=== PATIENT | female | born 1975 | race Caucasian/White ===

== ENCOUNTER → 2020-12-05 10:18 | Outpatient (CLI) | payer BC, SELFPAY ==
--- NOTE | ~2020-12-05 | MM_ITS ---
EXAMINATION: MM screening hyacinth BI w jacqueline HISTORY: Screening mammogram TECHNIQUE: Craniocaudal and mediolateral oblique 3-D tomosynthesis images were obtained and synthetic 2-D images were generated. CAD analysis was submitted and interpreted. COMPARISON: 10/25/2019, 04/17/2019, 10/05/2018 BREAST PARENCHYMAL COMPOSITION: The breasts are heterogeneously dense, which may obscure small masses . FINDINGS: Scattered benign-appearing calcifications are present. There is no evidence of suspicious m ass, calcification, or architectural distortion to suggest malignancy in either breast. There has bee n no suspicious interval change. IMPRESSION: 1. No mammographic evidence of malignancy. 2. Recommend routine screening mammography in one year. BI-RADS Category 2: Benign finding(s). Reviewed, dictated and finalized at location A. RACT CLERK AUTOMOBILE
== END ==
PROVIDERS: Visit Provider Obstetrics & Gynecology
DX: Z12.31 Encounter for screening mammogram for malignant neoplasm of breast (principal)
CPT/HCPCS: 77063; 77067

== ENCOUNTER → 2022-01-29 10:41 | Outpatient (CLI) | payer OTHER, SELFPAY ==
--- NOTE | ~2022-01-29 | MM_ITS ---
EXAMINATION: MM screening hyacinth BI w jacqueline HISTORY: Screening mammogram TECHNIQUE: Craniocaudal and mediolateral oblique 3-D tomosynthesis images were obtained and synthetic 2-D images were generated. CAD analysis was submitted and interpreted. COMPARISON: December 05, 2020 bilateral screening mammogram October 25, 2019 bilateral diagnostic mammogram and bilateral complete breast ultrasound examination April 17, 2019 diagnostic left mammogram 10/05/2018 bilateral diagnostic mammogram and complete bilateral breast ultrasound examination BREAST PARENCHYMAL COMPOSITION: The breasts are heterogeneously dense, which may obscure small masses . FINDINGS: Stable bilateral fibroglandular asymmetry. Occasional bilateral benign calcifications. Ther e is no evidence of suspicious mass, calcification, or architectural distortion to suggest malignancy in either breast. There has been no suspicious interval change. IMPRESSION: 1. No mammographic evidence of malignancy. 2. Recommend routine screening mammography in one year. BI-RADS Category 2: Benign finding(s). Reviewed, dictated and finalized at location A.
== END ==
PROVIDERS: PCP Obstetrics & Gynecology; Visit Provider Obstetrics & Gynecology
DX: Z12.31 Encounter for screening mammogram for malignant neoplasm of breast (principal)
CPT/HCPCS: 77063; 77067

== ENCOUNTER → 2023-02-25 16:37 | Outpatient (CLI) | payer OTHER, SELFPAY ==
--- NOTE | ~2023-02-25 | MM_ITS ---
EXAMINATION: MM screening hyacinth BI w jacqueline HISTORY: Screening mammogram TECHNIQUE: Craniocaudal and mediolateral oblique 3-D tomosynthesis images were obtained and synthetic 2-D images were generated. CAD analysis was submitted and interpreted. COMPARISON: 01/29/2022, 12/05/2020, 10/25/2019, 04/17/2019, 10/05/2018 BREAST PARENCHYMAL COMPOSITION: The breasts are heterogeneously dense, which may obscure small masses . FINDINGS: There are chronic, stable asymmetries outer right breast on the craniocaudal view in the lo wer left breast on the mediolateral oblique view. No suspicious mass, calcification, or architectural distortion are identified in either breast to suggest malignancy. There has been no suspicious inter álvaro change. IMPRESSION: 1. No mammographic evidence of malignancy. 2. Recommend routine screening mammography in one year. BI-RADS Category 2: Benign finding(s). Reviewed, dictated and finalized at location A.
== END ==
PROVIDERS: PCP Family Medicine; Visit Provider Obstetrics & Gynecology
DX: Z12.31 Encounter for screening mammogram for malignant neoplasm of breast (principal)
CPT/HCPCS: 77063; 77067

== ENCOUNTER 2023-10-15 08:20 | Outpatient (CLI) | payer OTHER, SELFPAY ==
--- NOTE | 2023-10-15 08:36 | ECG_ITS ---
Measurements Intervals [place] Rate: 76 P: 53 [place]: 172 QRS: 8 QRSD: 89 T: 0 QT: 368 QTc: 416 Interpretive Statements SINUS RHYTHM WITH SINUS ARRHYTHMIA INCOMPLETE RIGHT BUNDLE BRANCH BLOCK LOW QRS VOLTAGE IN PRECORDIAL LEADS ST-T WAVE ABNORMALITY IN ANT/INF LEADS- CONSIDER ISCHEMIA ABNORMAL ECG NO PREVIOUS ECG AVAILABLE FOR COMPARISON Electronically Signed On 10-15-2023 8:50:39 GLASSWARE MAKER DEMONSTRATOR by Salvador Diaz D.O.
[2023-10-15 08:37] LABS: Hematocrit 42.5 % (37.0-47.0); Hemoglobin 14.2 g/dL (12.0-15.0); Mean Corpuscular HGB Conc 33.4 g/dl (32-36); Mean Corpuscular Hemoglobin 30.5 pg (26-34); Mean Corpuscular Volume 91.2 fl (80-100); Mean Platelet Volume 9.4 fl (7.4-10.4); Platelet Count Result 278 k/mm3 (150-375); Red Blood Count 4.66 M/mm3 (4.2-5.4); Red Cell Distribution Width 11.9 % (11.5-14.5); White Blood Count 7.1 K/mm3 (4.5-10.0)
[2023-10-15 08:47] LABS: Alanine Aminotransferase 33 U/L (6-35); Albumin Level 4.2 g/dL (3.5-5.1); Alkaline Phosphatase 53 U/L (38-126); Anion Gap 6 mmol/L (8-16); Aspartate Amino Transferase 34 U/L (14-36); Bilirubin,Total 0.8 mg/dL (0.2-1.3); Blood Urea Nitrogen 11 mg/dL (7-17); Calcium 9.3 mg/dL (8.4-10.2); Carbon Dioxide 28 mmol/L (22-30); Chloride 105 mmol/L (98-107); Cholesterol 200 mg/dL (0-200); Estimated Glomerular Filt Rate > 60; Glucose 111 mg/dL (65-110); HDL Direct 44 mg/dL; Sodium 139 mmol/L (137-145); Triglycerides 88 mg/dL (<150)
[2023-10-15 08:58] LABS: LDL Cholesterol Direct 126 mg/dL
[2023-10-15 09:28] LABS: Free T4 Free Thyroxine 0.96 ng/mL (0.78-2.19)
== END 2023-10-15 08:21 | disposition home or self-care (01) ==
LOC: ANHLAB 08:21
PROVIDERS: PCP Family Medicine; Visit Provider Physician Assistant
DX: R00.2 Palpitations (principal); Z13.220 Encounter for screening for lipoid disorders; D64.9 Anemia, unspecified; Z13.1 Encounter for screening for diabetes mellitus; R53.83 Other fatigue; I45.10 Unspecified right bundle-branch block
CPT/HCPCS: 36415; 80053; 80061; 84439; 84443; 85027; 93005

== ENCOUNTER 2023-10-21 10:51 | Emergency (ER) | payer OTHER, SELFPAY ==
[2023-10-21] VITALS (22 sets, daily range): BP systolic 102–146; BP diastolic 63–87; PULSE 75–90; RESP 13–24; TEMP 37.1; O2SAT 98–100
--- NOTE | ~2023-10-21 | CT_ITS ---
EXAMINATION: CT brain wo con DATE: 10/21/2023 15:18 INDICATION: Dizziness. Left arm numbness, tingling. TECHNIQUE: Computed tomography (CT) of the head was performed without intravenous contrast. The mA wa s adjusted according to patient size. Iterative reconstruction technique was employed. Exam dose: 60 5.33 mGy-cm total exam DLP. COMPARISON: None FINDINGS: No intracranial mass lesion or hemorrhage or cerebrovascular accident. No midline shift or mass effect. Normal ventricular size. Normal foss-white matter differentiation. No subdural or epidur al hematoma. The orbital contents are unremarkable. The included paranasal sinuses and mastoid air cells are unremarkable. IMPRESSION: Negative Reviewed, dictated and finalized at Location A. Reviewed, dictated and finalized at location L. LER DYEING MACHINE OPERATOR IMPRESSION: Negative
--- NOTE | 2023-10-21 10:53 | ECG_ITS ---
Measurements Intervals [place] Rate: 85 P: 51 [place]: 176 QRS: 1 QRSD: 85 T: -16 QT: 347 QTc: 413 Interpretive Statements SINUS RHYTHM INCOMPLETE RIGHT BUNDLE BRANCH BLOCK LOW QRS VOLTAGE IN PRECORDIAL LEADS CONSIDER INFERIOR INFARCT, AGE INDETERMINATE ST-T WAVE ABNORMALITY IN ANTERIOR LEADS- CONSIDER ISCHEMIA BASELINE ARTIFACT- I, II, III, AVR, AVL, AVF ABNORMAL ECG COMPARED TO ECG 10/15/2023 08:43:26 NO SIGNIFICANT CHANGES Electronically Signed On 10-21-2023 15:46:51 GUITAR MAKER by Salvador Diaz D.O.
[2023-10-21 11:34] LABS: Basophils Percent Auto 0.4 % (0.2-1.2); Eosinophils Absolute Auto 0.1 K/mm3 (0-0.3); Eosinophils Percent Auto 0.8 % (0-4.4); Hematocrit 43.3 % (37.0-47.0); Hemoglobin 14.2 g/dL (12.0-15.0); Immature Granulocyte Absolute 0.03 K/mm3 (0.00-0.031); Immature Granulocyte Percent A 0.4 % (0-0.5); Lymphocytes Absolute Auto 1.94 K/mm3 (0.9-3.2); Mean Corpuscular HGB Conc 32.8 g/dl (32-36); Mean Corpuscular Hemoglobin 30.4 pg (26-34); Mean Corpuscular Volume 92.7 fl (80-100); Mean Platelet Volume 9.7 fl (7.4-10.4); Monocytes Absolute Auto 0.5 K/mm3 (0.1-0.6); Monocytes Percent Auto 6.7 % (2.6-8.5); Neutrophils Absolute Auto 4.9 K/mm3 (1.3-6.7); Neutrophils Percent Auto 65.7 % (45.5-73.1); Platelet Count Result 279 k/mm3 (150-375); Red Blood Count 4.67 M/mm3 (4.2-5.4); Red Cell Distribution Width 11.9 % (11.5-14.5); White Blood Count 7.5 K/mm3 (4.5-10.0)
[2023-10-21 11:41] LABS: Alanine Aminotransferase 24 U/L (6-35); Albumin Level 4.5 g/dL (3.5-5.1); Alkaline Phosphatase 53 U/L (38-126); Anion Gap 9 mmol/L (8-16); Aspartate Amino Transferase 27 U/L (14-36); Bilirubin,Total 0.7 mg/dL (0.2-1.3); Blood Urea Nitrogen 10 mg/dL (7-17); Calcium 9.5 mg/dL (8.4-10.2); Carbon Dioxide 25 mmol/L (22-30); Chloride 104 mmol/L (98-107); Estimated CRCL calculation 97 ml/min; Estimated Glomerular Filt Rate > 60; Glucose 112 mg/dL (65-110); Potassium 3.7 mmol/L (3.4-5.0); Sodium 138 mmol/L (137-145)
--- NOTE | 2023-10-21 13:20 | ED.DIZZY ---
HPI - Dizziness General Chief Complaint: Dizziness Stated Complaint: DIZZINESS,L ARM/SHOULDER TIGHTNESS Time Seen by Provider: 10/21/23 13:08 History of Present Illness HPI Narrative: Patient is a 47 year old female with history of anxiety, mitral valve prolapse here with multiple symptoms including left arm tingling and flu like symptoms. She believes that the arm tingling began sometime over the weekend, around 5-6 days ago. She notes that it feels like a pins and needles sensation over her arm, not numbness or weakness. She denies any other neurological symptoms. Believes it has been fairly steady and unchanging since it began, did not seek care when it began. She notes she has anxiety since her father in July and this seems to be worsening her anxiety and the anxiety may be worsening her tingling. She additionally notes she had several sick contacts over the weekend and began having flu like symptoms over the last 4-5 days. This includes a headache, nasal congestion, myalgias, diffuse full body fatigue. She denies shortness of breath. She has had some associated dizziness. No chest pain. No history of CAD. She took a home COVID test today which was negative. Related Data Allergies Allergy/AdvReac Type Severity Reaction Status Date / Time No Known Allergies Allergy Unknown Verified 09/16/23 09:16 Review of Systems Review of Systems: All systems reviewed & are unremarkable except as noted in HPI and below PMFSH Past Medical History Medical History (Updated 10/21/23 @ 17:05 by Maura Alvarado MD) Vaginal delivery Family History Family History (Updated 09/16/23 @ 09:46 by Hetal Schaefer PA-C) Grandparent Hypertension, Onset Age: 75 Mother Family history of diabetes mellitus in first degree relative, Onset Age: 49 Patient's mother is , Onset Age: 49 Diabetes mellitus Family history of kidney disease Family history of coronary artery disease Father Family history of coronary artery disease Heart disease Other Family history of malignant neoplasm of breast Social History Social History Smoking status: Never smoker Second hand tobacco smoke exposure: No Alcohol intake: current Alcohol use details: seldom; socially Substance use: never Substance use type: does not use Lack of Transportation: No Lack of Food: Never True Current Housing: I Have Housing Concerned About Future Housing: No Difficulty Paying Gas/Electric Bills: No Difficulty Paying for Meds: No Currently Unemployed: No Education: Bachelor's Degree Difficulty w/ Childcare or Family Care: No Living arrangements: with family Gender identity (if verbalized by the patient): Female Sexual Orientation (if Verbalized by the Patient): Straight or Heterosexual Spiritual care concerns: No Agree to blood products: Yes Exam Narrative: GENERAL: Well-appearing, well-nourished, and in no acute distress. HEAD: Normocephalic, atraumatic. EYES: PERRLA and EOMI. ENT: Nares clear. Mucous membranes moist. NECK: Supple. CHEST: Clear to auscultation. No respiratory distress. HEART: Regular rate and rhythm. Normal peripheral pulses. ABDOMEN: Soft, nontender, nondistended. EXTREMITIES: Normal range of motion. No edema. SKIN: Warm, dry, no rash. NEURO: No focal deficits. No facial droop, no numbness or weakness over face, arms, legs. No upper or lower extremity drift. No visual field deficits. Alert and oriented x3. PSYCH: Normal mood and affect. Course Course Emergency Course: Chart review performed. Patient here with dizziness and left arm numbness that started a few days ago along with light headedness, decreased appetite, congestion and headache. Triage vitals normal. Wellness exam note reviewed from 09/16/23. They note increased anxiety after losing father recently. Patient seen evaluated, nontoxic appearing. NIH is 0,
[2023-10-21] MEDS: ACETAMINOPHEN 500 MG TABLET 1000 MG PO (13:49)
[2023-10-21] MEDS: SODIUM CHLORIDE 0.9% IV 1,000 ML 999 ML IV CONT (13:49)
[2023-10-21] MEDS: LORazepam INJ (*CRX) 2 MG/ML VIAL 0.5 MG IV PUSH (13:49)
[2023-10-21 14:17] LABS: D Dimer 0.35 ug/mL (<0.48)
[2023-10-21 14:17] LABS: Troponin I < 0.012 ng/mL (0.000-0.034)
[2023-10-21 14:23] LABS: Influenza A QL RT-PCR Negative (Negative); Influenza B QL RT-PCR Negative (Negative); RSV RNA, RT-PCR Negative (Negative); SARS-CoV-2 RNA PCR Negative (Negative)
[2023-10-21 15:06] LABS: Thyroid Stimulating Hormone Reflex 0.916 uIU/mL (0.465-4.68)
--- NOTE | 2023-10-21 15:19 | ECG_ITS ---
Measurements Intervals [place] Rate: 85 P: 50 MT: 159 QRS: -8 QRSD: 89 T: -42 QT: 353 QTc: 421 Interpretive Statements SINUS RHYTHM INCOMPLETE RIGHT BUNDLE BRANCH BLOCK LOW QRS VOLTAGE IN PRECORDIAL LEADS ST-T WAVE ABNORMALITY IN ANTEROLAT/INF LEADS- CONSIDER ISCHEMIA BASELINE WANDER- V4-V6 ABNORMAL ECG COMPARED TO ECG 10/15/2023 08:43:26 NO SIGNIFICANT CHANGES Electronically Signed On 10-22-2023 8:12:17 TELEPHONE INFORMATION CLERK by Salvador Diaz D.O.
[2023-10-21 15:55] LABS: Troponin I < 0.012 ng/mL (0.000-0.034)
== END 2023-10-21 17:13 | disposition home or self-care (01) ==
PROVIDERS: Emergency Medicine; Emergency Provider Student in an Organized Health Care Education/Training Program; PCP Family Medicine
DX: R20.2 Paresthesia of skin (principal); B34.9 Viral infection, unspecified; Z20.822 Contact with and (suspected) exposure to COVID-19; I45.10 Unspecified right bundle-branch block; R94.31 Abnormal electrocardiogram [ECG] [EKG]
CPT/HCPCS: 36415; 70450; 80053; 84443; 84484; 85025; 85380; 87637; 93005; 96361; 96374; 99284; A9270; J2060; J7030

== ENCOUNTER 2023-11-18 08:30 | Outpatient (CLI) | payer OTHER, SELFPAY ==
--- NOTE | ~2023-11-18 | NM_ITS ---
EXAMINATION: NM chin stress w perfusion DATE: 11/18/2023 12:20 INDICATION: Chest pain TECHNIQUE: Rest images were obtained following intravenous administration of 10.1 mCi Tc99m tetrofosm in (Myoview). The patient was infused intravenously with Lexiscan (Regadenoson). Then, 31 mCi Tc99m t etrofosmin (Myoview) was administered intravenously, and stress images were obtained. Data was recons tructed into short axis and horizontal and vertical long axis SPECT images. Gated SPECT images were a lso obtained. COMPARISON: None. FINDINGS: There is no definite reversible or fixed perfusion abnormality to suggest ischemia or infar ction. There is normal left ventricular chamber size, wall motion and ejection fraction. Left ventri cular ejection fraction measures >70%. IMPRESSION: 1. Normal myocardial perfusion at rest and during stress. 2. Left ventricular ejection fraction measuring >70%. Reviewed, dictated and finalized at location A. WINDER
--- NOTE | 2023-11-18 08:40 | ECHO_ITS ---
Patient Info Name: Nasima Drake Age: 47 years : 1975 Gender: Female Ht: 68 in Wt: 180 lbs BSA: 2.00 m2 HR: 80 bpm BP: 145 / 81 mmHg Technical Quality: Fair Exam Date: 11/18/2023 9:01 AM Exam Location: Echo Lab Patient Status: Outpatient Admit Date: 11/18/2023 Staff Ordering Physician: Salvador Diaz DO Shell Machine Operator: Attending Provider: Salvador Diaz DO Referring Physician: Joe QUINN; Exam Type: CA echo doppler color flow Study Info Indications I34.1 - Nonrheumatic mitral (valve) prolapse Complete two-dimensional, color flow and Doppler transthoracic echocardiogram is performed. Summary 1. Complete two-dimensional, color flow and Doppler transthoracic echocardiogram is performed. 2. Left ventricular chamber dimension is normal. 3. Left ventricular systolic function is normal, estimated at 60-65%. 4. The left ventricular diastolic function is normal. 5. E/e' 7 is not elevated. 6. Left atrial chamber dimension is mildly enlarged. Left Ventricle E/e' 7 is not elevated. Left ventricular chamber dimension is normal. Left ventricular systolic function is normal, estimated at 60-65%. The left ventricular diastolic function is normal. Right Ventricle Right ventricular systolic function is normal and with normal TAPSE 2.4 cm. Right ventricular chamber dimension is normal. Left Atria Left atrial chamber dimension is mildly enlarged. Right Atria Right atrial chamber dimension is normal. Aortic Valve The aortic valve is trileaflet. There is no aortic valve stenosis. There is no aortic valve regurgitation. Pulmonic Valve There is no pulmonic regurgitation. Mitral Valve No mitral valve prolapse. There is no mitral valve stenosis. There is no mitral valve regurgitation. Tricuspid Valve There is no tricuspid valve regurgitation. Pericardium/Pleural There is no pericardial effusion. Inferior Vena Cava Normal inferior vena cava with >50% collapse upon inspiration consistent with normal right atrial pressure, 5 mmHg. Aorta The aortic root size at the sinus of Valsalva is normal. Left Ventricular Outflow Tract Name Value Normal LVOT 2D LVOT Diameter 2.0 cm LVOT Doppler LVOT Peak Gradient 5 mmHg LVOT Mean Gradient 3 mmHg LVOT VTI 24 cm LVOT VTI/AV VTI Ratio 0.6 LVOT Stroke Volume 73 ml LVOT CO 5.1 l/min LVOT CI 2.6 l/min/m2 Pulmonic Valve Name Value Normal PV Doppler PV Peak Gradient 4 mmHg Mitral Valve Name Value Normal MV Doppler MV Peak Gradient
--- NOTE | 2023-11-18 08:41 | EST_ITS ---
Patient Info Name: Nasima Drake Age: 47 years : 1975 Gender: Female Ht: 68 in Wt: 170 lbs BSA: 1.94 m2 HR: 74 bpm BP: 127 / 74 mmHg Heart Rhythm: Sinus Rhythm Exam Date: 11/18/2023 10:47 AM Exam Location: Echo Lab Patient Status: Outpatient Admit Date: 11/18/2023 Staff Ordering Physician: Salvador Diaz DO Attending Provider: Salvador Diaz DO Exercise Technologist: Ashely Mason CT Exercise Physician: Salvador Diaz DO Exam Type: CA stress test treadmill w NM Study Info Indications R07.89 - Other chest pain A treadmill exercise stress test was performed. Summary 1. 1. Negative Reinier exercise stress test for ischemic ST changes by ECG criteria. 2. 2. Good functional capacity, achieving 10 METs of workload. 3. 3. Appropriate HR response to exercise. 4. 4. Appropriate HR recovery at 1 minute post exercise. 5. 5. Nuclear scan to follow and will be reported separately. Please correlate with it. 6. 6. Patient informed of the above results. Protocol: Reinier Stress ECG Details Stage: REST Duration (min): 1 min : 1 sec Speed (mph): 0.0 Grade (%): 0 HR (bpm): 75 SBP (mmHg): 127 DBP (mmHg): 74 METS: --- Stage: REST Duration (min): 18 min : 10 sec Speed (mph): 0.0 Grade (%): 0 HR (bpm): 84 SBP (mmHg): 127 DBP (mmHg): 74 METS: --- Stage: STAGE 1 Duration (min): 1 min : 0 sec Speed (mph): 1.7 Grade (%): 10 HR (bpm): 100 SBP (mmHg): 127 DBP (mmHg): 74 METS: --- Stage: STAGE 1 Duration (min): 2 min : 0 sec Speed (mph): 1.7 Grade (%): 10 HR (bpm): 112 SBP (mmHg): 127 DBP (mmHg): 74 METS: --- Stage: STAGE 1 Duration (min): 3 min : 0 sec Speed (mph): 1.7 Grade (%): 10 HR (bpm): 111 SBP (mmHg): 148 DBP (mmHg): 69 METS: --- Stage: STAGE 2 Duration (min): 1 min : 0 sec Speed (mph): 2.5 Grade (%): 12 HR (bpm): 125 SBP (mmHg): 148 DBP (mmHg): 69 METS: --- Stage: STAGE 2 Duration (min): 2 min : 0 sec Speed (mph): 2.5 Grade (%): 12 HR (bpm): 126 SBP (mmHg): 157 DBP (mmHg): 71 METS: --- Stage: STAGE 2 Duration (min): 3 min : 0 sec Speed (mph): 2.5 Grade (%): 12 HR (bpm): 136 SBP (mmHg): 157 DBP (mmHg): 71 METS: --- Stage: STAGE 3 Duration (min): 1 min : 0 sec Speed (mph): 3.4 Grade (%): 14 HR (bpm): 142 SBP (mmHg): 160 DBP (mmHg): 70 METS: --- Stage: STAGE 3 Duration (min): 2 min : 0 sec Speed (mph): 3.4 Grade (%): 14 HR (bpm): 148 SBP (mmHg): 160 DBP (mmHg): 70 METS: --- Stage: STAGE 3 Duration (min): 2 min : 55 sec Speed (mph): 3.4 Grade (%): 14 HR (bpm): 155 SBP (mmHg): 169 DBP (mmHg): 69 METS: --- Stage: RECOVERY Duration (min): 0 min : 4 sec Speed (mph): 1.5 Grade (%): 0 HR (bpm): 154 SBP (mmHg): 169 DBP (mmHg): 69 METS: --- Stage: RECOVERY Duration (min): 1 min : 4 sec Speed (mph): 0.0 Grade (%): 0 HR (bpm): 133
== END 2023-11-18 08:31 | disposition home or self-care (01) ==
LOC: ANHCARD 08:32
PROVIDERS: PCP Family Medicine; Visit Provider Internal Medicine Cardiovascular Disease
DX: R07.9 Chest pain, unspecified (principal); I34.1 Nonrheumatic mitral (valve) prolapse
CPT/HCPCS: 78452; 93017; 93306; A9502

== ENCOUNTER 2024-05-25 12:46 | Outpatient (CLI) | payer OTHER, SELFPAY ==
--- NOTE | ~2024-05-25 | MM_ITS ---
EXAMINATION: MM screening hyacinth BI w jacqueline HISTORY: Screening TECHNIQUE: Craniocaudal and mediolateral oblique 3-D tomosynthesis images were obtained and synthetic 2-D images were generated. CAD analysis was submitted and interpreted. COMPARISON: Comparison to multiple prior studies sequentially, with oldest reviewed study dated 09/11. BREAST PARENCHYMAL COMPOSITION: Dense: The breasts are heterogeneously dense, which may obscure small masses FINDINGS: There is no evidence of suspicious mass, calcification, or architectural distortion to sugg est malignancy in either breast. There has been no suspicious interval change. IMPRESSION: 1. No mammographic evidence of malignancy. 2. Recommend routine screening mammography in one year. Reviewed, dictated and finalized at location B.
== END 2024-05-25 12:47 | disposition home or self-care (01) ==
LOC: CHSIMG 12:47
PROVIDERS: PCP Family Medicine; Visit Provider Obstetrics & Gynecology
DX: Z12.31 Encounter for screening mammogram for malignant neoplasm of breast (principal)
CPT/HCPCS: 77063; 77067

== ENCOUNTER 2024-12-31 17:27 | Emergency (ER) | payer OTHER, SELFPAY ==
[2024-12-31] VITALS (11 sets, daily range): BP systolic 111–133; BP diastolic 66–79; PULSE 73–84; RESP 18–20; TEMP 36.3–36.6; O2SAT 96–99
--- NOTE | ~2024-12-31 | CT_ITS ---
EXAMINATION: CT brain wo con DATE: 12/31/2024 17:57 INDICATION: Dizziness and anterior headache for 2 days. No known injury. TECHNIQUE: Computed tomography (CT) of the head was performed without intravenous contrast. The mA wa s adjusted according to patient size. Iterative reconstruction technique was employed. Exam dose: 60 5.33 mGy-cm total exam DLP. COMPARISON: 10/21/2023 CT brain FINDINGS: No intracranial mass lesion or hemorrhage or cerebrovascular accident, midline shift or mas s effect. Normal ventricular size. No subdural or epidural hematoma. The orbital contents are unremarkable. Several scalp calcifications are noted. No fracture or bone destruction of the cranial vault. The mastoid air cells and included paranasal si nuses are normally developed and aerated. IMPRESSION: No significant intracranial abnormality Reviewed, dictated and finalized at [facility]. Reviewed, dictated and finalized at [facility].
--- OUTSIDE RECORDS SUMMARY | 2024-12-31 17:29 | XMS_ITS | Clinical Summary ---
Author Organization [facility] Address [address] [place] [address] Care Team Providers Care Vice President Of Talent Acquisition Name Role Phone Rhoda Garcia MD Primary Care Provider [phone] Allergies No known active allergies Social History Tobacco Use Types Packs/Day Years Used Date Smoking Tobacco: Never Smokeless Tobacco: Never Alcohol Use Standard Drinks/Week Comments Yes 0 (1 standard drink = 0.6 oz pur e alcohol) socailly Comments No Sex and Gender Information Value Date Recorded Sex Assigned at Not on file Legal Sex Female 10:22 AM CDT Gender Identity Not on file Sexual Orientation Not on file Last Filed Vital Signs Vital Sign Reading Time Taken Comments Blood Pressure 106/50 04/24/2022 2:00 PM CDT Pulse 75 04/24/2022 1:05 PM CDT Temperature 36.8 C (98.2 F) 04/24/2022 10:33 AM CDT Respiratory Rate 18 04/24/2022 1:05 PM CDT Oxygen Saturation 98% 04/24/2022 2:00 PM CDT Inhaled Oxygen Concentration - - Weight 70.3 kg (155 lb) 04/24/2022 10:33 AM CDT Height 175.3 cm (5' 9 ) 04/24/2022 10:33 AM CDT Body Mass Index 22.89 04/24/2022 10:33 AM CDT Plan of Treatment Health Maintenance Due Date Last Done Comments Cervical Cancer Screening Pa p Smear (Age 30 to 64) Every 3 Years 1973 Colorectal Cancer Screening Colonoscopy (10 Years) 1973 Annual Physical 1976 Hepatitis C 12/11/1991 DTaP, Tdap and Td Vaccines ( 1 - Tdap) 1992 Hepatitis B Vaccines (1 of 3 - 19+ 3-dose series) 1992 Cervical Cancer Screening Pa p with HPV Testing (Age 30 to 64) Every 5 Years 12/11/2003 Cervical Cancer Screening with HPV 12/11/2003 Mammogram Screening 2013 Zoster Vaccines (1 of 2) 12/11/2023 COVID-19 Vaccine (2 - 2023-2 5 season) 2024 07/03/2021 Influenza Adult (#1) 2024 Meningococcal B Vaccine Aged Out No l onger eligible based on patient's age to complete this topic Meningococcal Vaccine Aged Out No yonatan mike eligible based on patient's age to complete this topic Pneumococcal Vaccine: Pediat rics (0 to 5 Years) and At-Risk Patients (6 to 64 Years) Aged Out No longer eligi ble based on patient's age to complete this topic RSV Immunizations Under 20 Months Aged Out No longer eligible based on patient's age to complete this topic Insurance Care Teams Vice President Of Talent Acquisition Relationship Specialty Start Date End Date Rhoda Garcia MD [address] [place] [address] PCP - General FAMILY PRACTICE 04/24/22
--- OUTSIDE RECORDS SUMMARY | 2024-12-31 17:29 | XMS_ITS | Clinical Summary ---
Author Organization [facility] Address [address] [place] [address] Care Team Providers Care Seo Marketing Specialist Name Role Phone Rhoda Garcia MD Primary Care Provider [phone] Source Comments [facility],non-owned Affiliates and Associated Physician Practices is amultiple site organization consisting of ambulatory clinics and hospital sitesin [place], [place], [place] and [place]. This disclosure is being madepursuant to the Care Everywhere program and may not contain all information available regarding this patient. Last updated 18.[facility] Allergies No known active allergies Medications Be aware that medications may not be up to date on this document. Always verify current medications with the patient. No known medications Active Problems No known active problems Social History Tobacco Use Types Packs/Day Years Used Date Smoking Tobacco: Never Smokeless Tobacco: Never Sex and Gender Information Value Date Recorded Sex Assigned at Not on file Gender Identity Not on file Sexual Orientation Not on file Last Filed Vital Signs Vital Sign Reading Time Taken Comments Blood Pressure 110/68 10/10/2017 10:55 AM GENERAL CONTRACTOR Pulse 82 10/10/2017 10:55 AM GENERAL CONTRACTOR Temperature 37.1 C (98.7 F) 10/10/2017 10:55 AM GENERAL CONTRACTOR Respiratory Rate 16 10/10/2017 10:55 AM GENERAL CONTRACTOR Oxygen Saturation 97% 10/10/2017 10:55 AM GENERAL CONTRACTOR Inhaled Oxygen Concentration - - Weight 68 kg (150 lb) 10/10/2017 10:55 AM GENERAL CONTRACTOR Height 175.3 cm (5' 9 ) 10/10/2017 10:55 AM GENERAL CONTRACTOR Body Mass Index 22.15 10/10/2017 10:55 AM GENERAL CONTRACTOR Plan of Treatment Health Maintenance Due Date Last Done Comments COLOGUARD (AGES 45-75) - COL ON CA SCREENING 1975 COLON MONITORING 1973 COLONOSCOPY - COLON CA SCREENING 1973 CT COLONOGRAPHY - COLON CA SCREENING 1975 Colorectal Cancer Screening 1973 FIT - COLON CA SCREENING 1973 FLEX SIG - COLON CA SCREENING 1973 LIPID TESTING 1975 MAMMOGRAM 1973 PAP SMEAR 1973 HIV SCREENING 1988 HEPATITIS C SCREENING 12/06/1991 DTAP/TDAP/TD VACCINES (1 - Tdap) 1992 HEPATITIS B VACCINE (1 of 3 - 19+ 3-dose series) 1992 PNEUMOCOCCAL VACCINE 50+ (1 of 1 - PCV) 12/11/2023 ZOSTER VACCINE (1 of 2) 12/11/2023 COVID-19 VACCINE (1 - 2023-2 5 season) 2024 INFLUENZA VACCINE (#1) 2024 DEPRESSION SCREENING 10/11/2024 HIB VACCINE Aged Out No longer eligi ble based on patient's age to complete this topic HPV VACCINE Aged Out No longer eligi ble based on patient's age to complete this topic MENINGOCOCCAL (Group B) VACC INE SHARED DECISION-MAKING Aged Out No longer eligibl e based on patient's age to complete this topic MENINGOCOCCAL GROUPS A/C/Y/W VACCINE Aged Out No longer eligible b ased on patient's age to complete this topic PNEUMOCOCCAL VACCINE Aged Out No long er eligible based on patient's age to complete this topic Care Teams Seo Marketing Specialist Relationship Specialty Start Date End Date Rhoda Garcia MD [address] [place] [address] PCP - General Family Medicine 10/10/17
--- NOTE | 2024-12-31 17:32 | ED_ITS ---
HPI - Dizziness General Chief Complaint: Dizziness Stated Complaint: dizziness Source: patient Mode of arrival: ambulatory Limitations: no limitations History of Present Illness HPI Narrative: patient is a 49-year-old female with a headache and dizziness for the past 3 days. She had noted some elevated blood pressures at home. She is having an uneasy feeling with nausea as well. No chest pain but some left arm tingling at times and she said this happens when she gets anxious. She does have some social stressors. MD elicited complaint: dizziness, lightheadedness, near syncope, vertigo and disequilibrium Pertinent past history: other ( Anxiety) Onset (ago): day(s) ( 3) Timing: gradual onset and intermittent Severity: moderate Description: sense of movement, room spinning , lightheadedness, off-balance, near-syncope and ongoing Context: other ( patient having progressively worse dizziness and vertigo changes over the past 3 days with a headache and nausea) History of similar symptoms: No Exacerbating factors: nothing Relieving factors: remaining still Associated symptoms: nausea and nasal congestion Associated neuro symptoms: other ( none) Related Data Allergies Allergy/AdvReac Type Severity Reaction Status Date / Time No Known Allergies Allergy Unknown Verified 12/31/24 18:13 Review of Systems 2 Review of Systems: All systems reviewed & are unremarkable except as noted in HPI and below Constitutional: Constitutional: Reports no additional constitutional complaints Eyes: Eyes: Reports no additional eye complaints ENT: Reports system reviewed and no additional complaints, except as documented Cardiovascular: Cardiovascular: Reports no additional cardiovascular complaints Respiratory: Respiratory: Reports no additional respiratory complaints Gastrointestinal: Gastrointestinal: Reports no additional gastrointestinal complaints Genitourinary: Genitourinary: Reports no additional female genitourinary complaints Musculoskeletal: Musculoskeletal: Reports no additional musculoskeletal complaints Integumentary/Breasts: Skin/Breast: Reports system reviewed and no additional complaints, except as docu Neurologic: Reports system reviewed and no additional complaints, except as documented Psychiatric: Psychiatric: Reports no additional psychiatric complaints Endocrine: Endocrine: Reports no additional endocrine complaints Hematologic/Lymphatic: Hematologic/Lymphatic: Reports no additional hematologic/lymphatic complaints Allergic/Immunologic: Allergic/Immunologic: Reports no additional allergic/immunologic complaints [facility] Past Medical History Medical History (Updated 12/31/24 @ 19:51 by Cabrera Milan MD) Vaginal delivery Family History Family History Grandparent Hypertension, Onset Age: 75 Mother Family history of diabetes mellitus in first degree relative, Onset Age: 49 Patient's mother is , Onset Age: 49 Diabetes mellitus Family history of kidney disease Family history of coronary artery disease Father Family history of coronary artery disease Heart disease Other Family history of malignant neoplasm of breast Social History Social History Smoking status: Never smoker Second hand tobacco smoke exposure: No Alcohol intake: current Alcohol use details: seldom; socially Substance use: never Substance use type: does not use Do You Feel Safe in your Home?: Yes Lack of Transportation: No Lack of Food: Never True Current Housing: I Have Housing Concerned About Future Housing: No Difficulty Paying Gas/Electric Bills: No Difficulty Paying for Meds: No Currently Unemployed: No Education: Bachelor's Degree Difficulty w/ Childcare or Family Care: No Living arrangements: with family Gender identity (if verbalized by the patient): Female Sexual Orientation (if Verbalized by the Patient): Straight or Heterosexual Spiritual care concerns: No Agree to blood products: Yes Exam 2 Const: General: healthy appearing Nutritional Appearance: well nourished Orientation/consciousness: patient oriented x3 Limitations: no limitations HENMT: Head: normal to inspection Ears: TM's normal bilaterally F nicci/Nose/Sinus: Normal external nose present Eyes: Conjunctivae: conjunctivae normal Pupils: Equal, round and reactive pupils present EOM: EOMs intact bilaterally Neck: Neck: normal visual inspection Chest: Chest palpation & inspection: normal inspection of the chest Resp: Effort & Inspection: normal respiratory effort and not labored A uscultation: clear to auscultation bilaterally and no crackles Cardio: Rate: regular rate Rhythm: regular rhythm Heart sounds: no murmurs GI: Inspection: non-distended GI Palp: Yes Soft to palpation and No Tenderness to palpation present (GI) Auscultation: normal bowel sounds : General: Yes bladder normal to palpation Back/Spine/Pelvis: Back: no CVA tenderness Skin: General skin exam: normal color Rashes: no rashes Wounds: no wounds Neuro: General: patient oriented x3, moves all extremities, no meningeal signs, no focal motor deficits and CN's II-XI intact bilaterally Cranial nerves: Yes Nystagmus not present Speech: normal speech Gait exam (Neuro): Normal gait present Other: fast exam is negative, NIH score is 0, GCS is 15 Extrem: General: normal to inspection Psych: Mental Status: mental status grossly normal Affect: normal affect Attitude: cooperative Course Vital Signs Vital signs: Vital Signs Temperature 36.3 C L 12/31/24 17:33 Pulse Rate 84 12/31/24 17:33 Respiratory Rate 18 12/31/24 17:33 Blood Pressure 133/79 12/31/24 17:33 Pulse Oximetry 98 12/31/24 17:33 Oxygen Delivery Room Air 12/31/24 17:33 Temperature 36.3 C L 12/31/24 17:33 Pulse Rate 83 12/31/24 19:16 Respiratory Rate 18 12/31/24 19:16 Blood Pressure 113/66 12/31/24 19:16 Pulse Oximetry 99 12/31/24 19:16 Oxygen Delivery Room Air 12/31/24 19:16 MDM - Dizziness MDM Narrative Medical decision making narrative: patient is a 49-year-old female with some dizziness and headache with associated nausea over the past 3 days. We will do a cardiac/ neuro workup at this time. Lab Data Attestation: I reviewed the patient's lab results. 12/31/24 18:15 12/31/24 18:15 Labs: Lab Results 12/31/24 Range/Units 18:15 WBC 8.0 (4.8-10.8) K/mm3 RBC 4.56 (4.20-5.40) M/mm3 Hgb 13.8 (12.0-15.0) g/dL Hct 40.9 (35.0-49.0) % MCV 89.7 (78.0-102.0) fL MCH 30.3 (27.0-31.0) pg MCHC 33.7 (32-36) g/dL RDW 12.1 (11.6-14.4) % Plt Count 298 (150-420) K/mm3 MPV 9.6 (9.2-11.8) fl Immature Gran % (Auto) 0.1 H (0.0-0.0) % Neut % (Auto) 68.7 (50.0-70.0) % Lymph % (Auto) 23.4 (18.0-42.0) % [place] % (Auto) 7.1 (2.0-11.0) % Eos % (Auto) 0.5 L (1.0-6.0) % Baso % (Auto) 0.2 (0.0-1.0) % Lymph # (Auto) 1.88 (1.10-4.50) K/mm3 [place] # (Auto) 0.57 (0.10-0.90) K/mm3 Eos # (Auto) 0.04 (0.02-0.50) K/mm3 Baso # (Auto) 0.02 (0.00-0.10) K/mm3 Abs Immat Gran (auto) 0.01 H (0.00-0.00) K/mm3 Absolute Neuts (auto) 5.50 (1.70-7.20) K/mm3 Absolute Nucleated RBC 0.00 (0.00-0.00) K/mm3 Nucleated RBC % 0.0 (0-0.0) % Sodium 142 (136-145) mmol/L Potassium 3.8 (3.5-5.1) mmol/L Chloride 106 (98-108) mmol/L Carbon Dioxide 28 (21-32) mmol/L Anion Gap 8 (4-12) mmol/L BUN 12 (7-18) mg/dL Creatinine 0.75 (0.55-1.02) mg/dL Estim Creat Clear Calc Not Reportable Estimated GFR > 60 (59 - ) Glucose 110 H (70-99) mg/dL Calculated Osmolality 294 (285-295) mOsm/kg Calcium 9.5 (8.5-10.1) mg/dL Total Bilirubin 0.4 (0.00-1.00) mg/dL AST 16 (15-37) U/L ALT 24 (14-59) U/L Alkaline Phosphatase 62 (46-116) U/L Troponin I < 4.0 (0.00-60.4) ng/L Total Protein 7.8 (6.4-8.2) g/dL Albumin 4.2 (3.4-5.0) g/dL Urine Color Light yellow (Yellow) Urine Appearance Clear (Clear) Urine pH 7.0 (5.0-8.0) Ur Specific [place] <= 1.005 L (1.010-1.020) Urine Protein Negative (Negative) Urine Glucose (UA) Negative (Negative) Urine Ketones Negative (Negative) Ur Blood (Man) Negative (Negative) Urine Nitrate Negative (Negative) Urine Bilirubin Negative (Negative) Urine Urobilinogen 0.2 (0.2-1.0) mg/dL Leukocyte Esterase Rfl 1+ H (Negative) ANGELA/UL Urine WBC 0-3 (0-3) /hpf Ur Squamous Epith Cells Moderate H (Few) /hpf Imaging Data Attestation: I personally reviewed and interpreted this imaging study as follows: Radiologist's impression: CT scan of the head was negative for acute process Discharge Plan Discharge Clinical Impression: Acute labyrinthitis Qualifiers: Laterality: bilateral Qualified Code(s): H83.03 - Labyrinthitis, bilateral Patient Disposition: Home, Self-Care Condition: Stable Instructions: Labyrinthitis (ED), Benign Paroxysmal Positional Vertigo (ED) Additional Instructions: Please follow-up with the primary doctor in the next week. If this continues, an research & analytics manager should be able to help solve this problem. Patient Language: Mexican Prescriptions: No Action alprazolam 0.5 mg tablet 0.5 mg PO TID PRN (Reason: anxiety) Qty: 30 0RF Follow-up/Referrals: Rhoda Garcia MD [Primary Care Provider] - Time of Disposition: 19:52
--- NOTE | 2024-12-31 17:42 | ECG_ITS ---
Test Date: 2024-12-31 18:00:38 Measurements Intervals [place] Rate: 77 P: 55 IN: 170 QRS: 8 QRSD: 85 T: -31 QT: 349 QTc: 397 Interpretive Statements SINUS RHYTHM LOW QRS VOLTAGE IN PRECORDIAL LEADS [QRS DEFLECTION < 1.0 mV IN CHEST LEADS] ST DEVIATION AND MODERATE T-WAVE ABNORMALITY, CONSIDER ANTEROLATERAL ISCHEMIA [-0.1+ mV T-WAVE IN V3-V6] ST DEVIATION AND MODERATE T-WAVE ABNORMALITY, CONSIDER INFERIOR ISCHEMIA [-0.1+ mV T-WAVE IN II/aVF] No previous ECG available for comparison Electronically Signed On 01-01-2025 16:36:53 CDT by Scooby Smith M.D.
--- OUTSIDE RECORDS SUMMARY | 2024-12-31 18:05 | XMS_ITS | Clinical Summary ---
Author Organization [facility] Address [address] [place] [address] Care Team Providers Care Sleeve Tailor Name Role Phone Rhoda Garcia MD Primary Care Provider [phone] Allergies No known active allergies Social History [...] patient's age to complete [place] [address] Care Teams Sleeve Tailor Relationship Specialty Start Date End Date Rhoda Garcia MD [address] [place] [address] PCP - General FAMILY PRACTICE 04/24/22
--- OUTSIDE RECORDS SUMMARY | 2024-12-31 18:05 | XMS_ITS | Clinical Summary ---
Author Organization [facility] Address [address] [place] [address] Care Team Providers Care Sales Representative Facility Services Name Role Phone Rhoda Garcia MD Primary Care Provider [phone] Source Comments [facility],non-owned Affiliates and Associated Physician Practices is amultiple site organization consisting of ambulatory clinics and hospital sitesin [place], [place], [place] and [place]. This disclosure is being madepursuant to the Care Everywhere program and may not contain all information available regarding this patient. Last updated 18.[facility] Allergies No known active allergies Medications Be [...] Comments Blood Pressure 110/68 10/10/2017 10:55 AM SENIOR UX DEVELOPER Pulse 82 10/10/2017 10:55 AM SENIOR UX DEVELOPER Temperature 37.1 C (98.7 F) 10/10/2017 10:55 AM SENIOR UX DEVELOPER Respiratory Rate 16 10/10/2017 10:55 AM SENIOR UX DEVELOPER Oxygen Saturation 97% 10/10/2017 10:55 AM SENIOR UX DEVELOPER Inhaled Oxygen Concentration - - Weight 68 kg (150 lb) 10/10/2017 10:55 AM SENIOR UX DEVELOPER Height 175.3 cm (5' 9 ) 10/10/2017 10:55 AM SENIOR UX DEVELOPER Body Mass Index 22.15 10/10/2017 10:55 AM SENIOR UX DEVELOPER Plan of Treatment Health Maintenance Due Date [...] age to complete this topic Care Teams Sales Representative Facility Services Relationship Specialty Start Date End Date Rhoda Garcia MD [address] [place] [address] PCP - General Family Medicine 10/10/17
[2024-12-31 18:31] LABS: Basophils Absolute Auto 0.02 K/mm3 (0.00-0.10); Basophils Percent Auto 0.2 % (0.0-1.0); Eosinophils Absolute Auto 0.04 K/mm3 (0.02-0.50); Eosinophils Percent Auto 0.5 % (1.0-6.0); Hematocrit 40.9 % (35.0-49.0); Hemoglobin 13.8 g/dL (12.0-15.0); Immature Granulocyte Absolute 0.01 K/mm3 (0.00-0.00); Immature Granulocyte Percent A 0.1 % (0.0-0.0); Lymphocytes Absolute Auto 1.88 K/mm3 (1.10-4.50); Lymphocytes Percent Auto 23.4 % (18.0-42.0); Mean Corpuscular HGB Conc 33.7 g/dL (32-36); Mean Corpuscular Hemoglobin 30.3 pg (27.0-31.0); Mean Corpuscular Volume 89.7 fL (78.0-102.0); Mean Platelet Volume 9.6 fl (9.2-11.8); Monocytes Absolute Auto 0.57 K/mm3 (0.10-0.90); Monocytes Percent Auto 7.1 % (2.0-11.0); Neutrophils Percent Auto 68.7 % (50.0-70.0); Platelet Count Result 298 K/mm3 (150-420); Red Blood Count 4.56 M/mm3 (4.20-5.40); Red Cell Distribution Width 12.1 % (11.6-14.4)
[2024-12-31 18:34] LABS: Add Urine Microscopic? YES; Appearance Urine Clear (Clear); Bilirubin Urine Negative (Negative); Blood Urine Negative (Negative); Color Urine Light Yellow (Yellow); Glucose Urine UA Negative (Negative); Ketones Urine Negative (Negative); Leukocyte Esterase Ur 1+ LEU/UL (Negative); Nitrate Urine Negative (Negative); Protein Urine Negative (Negative); Specific Grav Ur <= 1.005 (1.010-1.020); Urobilinogen Urine 0.2 mg/dL (0.2-1.0)
[2024-12-31 18:44] LABS: Squamous Epithelial Cell Urine Moderate /hpf (Few); WBC Urine 0-3 /hpf (0-3)
[2024-12-31 18:49] LABS: Alanine Aminotransferase 24 U/L (14-59); Albumin Level 4.2 g/dL (3.4-5.0); Alkaline Phosphatase 62 U/L (46-116); Anion Gap 8 mmol/L (4-12); Aspartate Amino Transferase 16 U/L (15-37); Bilirubin,Total 0.4 mg/dL (0.00-1.00); Blood Urea Nitrogen 12 mg/dL (7-18); Calcium 9.5 mg/dL (8.5-10.1); Carbon Dioxide 28 mmol/L (21-32); Chloride 106 mmol/L (98-108); Estimated Glomerular Filt Rate > 60; Glucose 110 mg/dL (70-99); Osmolality Calculated 294 mOsm/kg (285-295); Potassium 3.8 mmol/L (3.5-5.1); Sodium 142 mmol/L (136-145); Total Protein 7.8 g/dL (6.4-8.2)
[2024-12-31 18:50] LABS: Troponin I < 4.0 ng/L (0.00-60.4)
--- NOTE | 2024-12-31 19:00 | PC.NURSE ---
PATIENT REPORT RECEIVED FROM ANTONIA KEE. PATIENT RESTING ON STRETCHER. IS AT HER SIDE.
--- NOTE | 2024-12-31 19:02 | PC.NURSE ---
report to marquis calles
[2024-12-31] MEDS: MECLIZINE HCL 25 MG TABLET PO (19:16)
--- NOTE | 2024-12-31 19:18 | PC.NURSE ---
DR DURAN AT THE BEDSIDE
--- NOTE | 2024-12-31 19:22 | PC.NURSE ---
MEDICATED PER MAR WITH MECLIZINE. EDUCATION GIVEN ABOUT MEDICATION. CALL LIGHT IN REACH
[2024-12-31] MEDS: predniSONE 20 MG TABLET PO (20:03)
== END 2024-12-31 20:07 | disposition home or self-care (01) ==
PROVIDERS: Emergency Provider Emergency Medicine; PCP Family Medicine
DX: H83.03 Labyrinthitis, bilateral (principal)
CPT/HCPCS: 36415; 70450; 80053; 81001; 84484; 85025; 93005; 99284; A9270; J7512